=== PATIENT | female | born 1975 | race Caucasian/White ===

== ENCOUNTER 2016-08-18 08:00 | Outpatient (CLI) | payer OTHER | END 2016-08-18 08:01 | disposition home or self-care (01) | DX: E11.9 Type 2 diabetes mellitus without complications (principal) ==

== ENCOUNTER 2016-11-09 11:00 | Emergency (ER) | payer OTHER | END 2016-11-09 12:44 | disposition home or self-care (01) | DX: R00.2 Palpitations (principal); R06.02 Shortness of breath; I10 Essential (primary) hypertension; E11.9 Type 2 diabetes mellitus without complications; Z79.84 Long term (current) use of oral hypoglycemic drugs; E78.5 Hyperlipidemia, unspecified; Z79.82 Long term (current) use of aspirin ==

== ENCOUNTER 2016-11-12 08:13 | Outpatient (CLI) | payer OTHER | END 2016-11-12 08:14 | disposition home or self-care (01) | DX: E11.9 Type 2 diabetes mellitus without complications (principal); R00.2 Palpitations ==

== ENCOUNTER 2017-03-15 11:21 | Outpatient (CLI) | payer OTHER ==
[2017-03-15 19:42] LABS: ALBUMIN/GLOBULIN RATIO 1.6 (1.0-2.2); BILIRUBIN,TOTAL 0.6 mg/dL (0.2-1.0); BUN - BLOOD UREA NITROGEN 20 mg/dL (6-20); CARBON DIOXIDE - CO2 25 mmol/L (21-32); CHLORIDE 105 mmol/L (101-111); CHOL/HDL RATIO 4.9 (<4.4); CHOLESTEROL 211 mg/dL; CREATININE 0.8 mg/dL (0.4-1.0); GFR - MDRD 79 (>89); GLUCOSE 90 mg/dL (70-100); HDL CHOLESTEROL 43 mg/dL; LDL/HDL RATIO 3.5 (<4.4); POTASSIUM 4.1 mmol/L (3.5-5.0); SODIUM 137 mmol/L (135-145); TOTAL PROTEIN 6.9 g/dL (6.7-8.2); TRIGLYCERIDES 86 mg/dL; VLDL CHOLESTEROL 17 mg/dL
[2017-03-15 20:36] LABS: HEMOGLOBIN A1C 0.42 g/dL
== END 2017-03-15 11:22 ==
LOC: LAB.WCP 11:21
PROVIDERS: ATTEND Physician Assistant Medical
DX: E11.9 Type 2 diabetes mellitus without complications (principal)
CPT/HCPCS: 36415; 80053; 80061; 83036

== ENCOUNTER 2017-03-25 09:57 | Outpatient (CLI) | payer OTHER ==
--- NOTE | 2017-03-26 15:24 | Mammography Report ---
DIGITAL SCREENING MAMMOGRAM: 03/25/2017 CLINICAL INDICATION: A 41-year-old, for screening. COMPARISON: 01/2016. TECHNIQUE: Routine CC and MLO projections were obtained of the breasts. FINDINGS: Scattered fibroglandular tissue is present within the breasts. There are no dominant anshul s, suspicious microcalcifications, or secondary signs of malignancy. In comparison to the previous st udies, there are no significant changes. ASSESSMENT: NO MAMMOGRAPHIC EVIDENCE OF MALIGNANCY. NO SIGNIFICANT INTERVAL CHANGES. RECOMMENDATION: Screening mammography is recommended annually. BIRADS category 1 - negative. STANDARD QUALIFYING STATEMENTS 1. This examination was reviewed with the aid of Computed-Aided Detection (CAD). 2. A negative or benign imaging report should not delay biopsy if clinically suspicious findings are present. Consider surgical consultation if warranted. More than 5% of cancers are not identified by i maging. 3. Dense breasts may obscure an underlying neoplasm. JOB #: [id number] EXT JOB #:[id number]
== END 2017-03-25 09:58 | disposition home or self-care (01) ==
LOC: DI 09:57
PROVIDERS: ATTEND Physician Assistant Medical
DX: Z12.31 Encounter for screening mammogram for malignant neoplasm of breast (principal)
CPT/HCPCS: 77067

== ENCOUNTER 2017-06-24 08:00 | Outpatient (CLI) | payer OTHER ==
[2017-06-24 13:37] LABS: ALBUMIN/GLOBULIN RATIO 1.4 (1.0-2.2); BILIRUBIN,TOTAL 0.3 mg/dL (0.2-1.0); BUN - BLOOD UREA NITROGEN 14 mg/dL (6-20); CALCIUM 9.3 mg/dL (8.5-10.3); CARBON DIOXIDE - CO2 26 mmol/L (21-32); CHLORIDE 102 mmol/L (101-111); CHOL/HDL RATIO 3.2 (<4.4); CHOLESTEROL 157 mg/dL; CREATININE 0.8 mg/dL (0.4-1.0); GFR - MDRD 79 (>89); GLUCOSE 94 mg/dL (70-100); HDL CHOLESTEROL 49 mg/dL; LDL/HDL RATIO 1.8 (<4.4); POTASSIUM 3.8 mmol/L (3.5-5.0); SODIUM 135 mmol/L (135-145); TOTAL PROTEIN 7.2 g/dL (6.7-8.2); TRIGLYCERIDES 95 mg/dL; VLDL CHOLESTEROL 19 mg/dL
[2017-06-24 13:42] LABS: HEMOGLOBIN A1C 0.47 g/dL
== END 2017-06-24 08:01 | disposition home or self-care (01) ==
LOC: LAB.WCP 08:00
PROVIDERS: ATTEND Physician Assistant Medical
DX: E11.9 Type 2 diabetes mellitus without complications (principal)
CPT/HCPCS: 36415; 80053; 80061; 82043; 83036

== ENCOUNTER 2017-09-29 08:01 | Outpatient (CLI) | payer OTHER ==
[2017-09-29 13:33] LABS: HB2 TOTAL 12.9 g/dL; HEMOGLOBIN A1C 0.42 g/dL; HEMOGLOBIN A1C % 5.1 % (4.6-6.2)
[2017-09-29 13:35] LABS: ALBUMIN 4.1 g/dL (3.2-5.5); ALBUMIN/GLOBULIN RATIO 1.2 (1.0-2.2); ALKALINE PHOSPHATASE 60 IU/L (42-121); ALT ALANINE AMINOTRANSFERASE 20 IU/L (10-60); AST ASPARTATE AMINOTRANSFERASE 19 IU/L (10-42); BILIRUBIN,TOTAL 0.2 mg/dL (0.2-1.0); BUN - BLOOD UREA NITROGEN 19 mg/dL (6-20); CALCIUM 8.9 mg/dL (8.5-10.3); CARBON DIOXIDE - CO2 26 mmol/L (21-32); CHLORIDE 103 mmol/L (101-111); CHOL/HDL RATIO 3.4 (<4.4); CHOLESTEROL 146 mg/dL; CREATININE 0.8 mg/dL (0.4-1.0); GFR - MDRD 79 (>89); GLUCOSE 95 mg/dL (70-100); HDL CHOLESTEROL 43 mg/dL; LDL CHOLESTEROL,CALCULATED 88 mg/dL; SODIUM 137 mmol/L (135-145); TOTAL PROTEIN 7.4 g/dL (6.7-8.2); VLDL CHOLESTEROL 15 mg/dL
== END 2017-09-29 08:02 | disposition home or self-care (01) ==
LOC: LAB.WCP 08:01
PROVIDERS: ATTEND Physician Assistant Medical
DX: E11.9 Type 2 diabetes mellitus without complications (principal); E78.5 Hyperlipidemia, unspecified
CPT/HCPCS: 36415; 80053; 80061; 83036; 83721

== ENCOUNTER 2018-05-03 09:44 | Outpatient (CLI) | payer OTHER ==
[2018-05-03 13:58] LABS: BASOPHILS % (AUTO) 0.4 %; EOSINOPHILS # (AUTO) 0.2 10^3/uL (0.0-0.7); EOSINOPHILS % (AUTO) 2.1 %; HGB - HEMOGLOBIN 12.2 g/dL (12.0-16.0); LYMPHOCYTES # (AUTO) 2.3 10^3/uL (1.5-3.5); LYMPHOCYTES % (AUTO) 30.1 %; MEAN CORPUSCULAR HEMOGLOBIN 31.1 pg (27.0-31.0); MEAN CORPUSCULAR HGB CONC 34.8 g/dL (32.0-36.0); MEAN CORPUSCULAR VOLUME 89.1 fL (81.0-99.0); MEAN PLATELET VOLUME 8.3 fL (7.9-10.8); MONOCYTES # (AUTO) 0.5 10^3/uL (0.0-1.0); MONOCYTES % (AUTO) 6.2 %; NEUTROPHILS # (AUTO) 4.7 10^3/uL (1.5-6.6); NEUTROPHILS % (AUTO) 61.2 %; PLT - PLATELET COUNT 364 10^3/uL (130-450); RED BLOOD COUNT 3.93 10^6/uL (4.20-5.40); RED CELL DISTRIBUTION WIDTH 13.2 % (12.0-15.0); WHITE BLOOD COUNT 7.6 x10^3/uL (4.8-10.8)
[2018-05-03 14:23] LABS: HEMOGLOBIN A1C 0.43 g/dL; HEMOGLOBIN A1C % 5.2 % (4.6-6.2)
[2018-05-03 14:39] LABS: ALBUMIN 4.3 g/dL (3.2-5.5); ALBUMIN/GLOBULIN RATIO 1.4 (1.0-2.2); ALKALINE PHOSPHATASE 72 IU/L (42-121); ALT ALANINE AMINOTRANSFERASE 21 IU/L (10-60); AST ASPARTATE AMINOTRANSFERASE 20 IU/L (10-42); BILIRUBIN,TOTAL 0.5 mg/dL (0.2-1.0); BUN - BLOOD UREA NITROGEN 17 mg/dL (6-20); CALCIUM 9.4 mg/dL (8.5-10.3); CARBON DIOXIDE - CO2 26 mmol/L (21-32); CHLORIDE 103 mmol/L (101-111); CHOL/HDL RATIO 3.3 (<4.4); CHOLESTEROL 174 mg/dL; CREATININE 0.7 mg/dL (0.4-1.0); GFR - MDRD 92 (>89); GLUCOSE 107 mg/dL (70-100); HDL CHOLESTEROL 52 mg/dL; LDL CHOLESTEROL,CALCULATED 107 mg/dL; LDL/HDL RATIO 2.1 (<4.4); SODIUM 136 mmol/L (135-145); TOTAL PROTEIN 7.4 g/dL (6.7-8.2); VLDL CHOLESTEROL 15 mg/dL
== END 2018-05-03 09:45 | disposition home or self-care (01) ==
LOC: LAB.WCP 09:44
PROVIDERS: ATTEND Physician Assistant Medical
DX: E11.9 Type 2 diabetes mellitus without complications (principal); Z00.00 Encounter for general adult medical examination without abnormal findings
CPT/HCPCS: 36415; 80053; 80061; 80175; 82043; 83036; 83721; 84443; 85025

== ENCOUNTER 2018-10-20 08:00 | Outpatient (CLI) | payer OTHER ==
[2018-10-20 19:15] LABS: HB2 TOTAL 13.7 g/dL; HEMOGLOBIN A1C 0.45 g/dL; HEMOGLOBIN A1C % 5.2 % (4.6-6.2)
[2018-10-20 19:19] LABS: ALBUMIN 4.5 g/dL (3.2-5.5); ALBUMIN/GLOBULIN RATIO 1.7 (1.0-2.2); ALKALINE PHOSPHATASE 65 IU/L (42-121); ALT ALANINE AMINOTRANSFERASE 21 IU/L (10-60); AST ASPARTATE AMINOTRANSFERASE 22 IU/L (10-42); BILIRUBIN,TOTAL 0.6 mg/dL (0.2-1.0); BUN - BLOOD UREA NITROGEN 19 mg/dL (6-20); CALCIUM 9.3 mg/dL (8.5-10.3); CARBON DIOXIDE - CO2 27 mmol/L (21-32); CHLORIDE 101 mmol/L (101-111); CHOL/HDL RATIO 2.6 (<4.4); CHOLESTEROL 140 mg/dL; CREATININE 0.8 mg/dL (0.4-1.0); GFR - MDRD 78 (>89); GLUCOSE 82 mg/dL (70-100); HDL CHOLESTEROL 53 mg/dL; LDL CHOLESTEROL,CALCULATED 76 mg/dL; LDL/HDL RATIO 1.4 (<4.4); SODIUM 138 mmol/L (135-145); TOTAL PROTEIN 7.2 g/dL (6.7-8.2); VLDL CHOLESTEROL 11 mg/dL
== END 2018-10-20 23:59 | disposition home or self-care (01) ==
LOC: LAB.WCP 08:00
PROVIDERS: ATTEND Physician Assistant Medical
DX: E11.9 Type 2 diabetes mellitus without complications (principal)
CPT/HCPCS: 36415; 80053; 80061; 83036; 83721

== ENCOUNTER 2018-10-27 12:12 | Outpatient (CLI) | payer OTHER ==
--- NOTE | 2018-10-27 16:05 | XRAY Report ---
Reason: RADICULOPATHY Procedure Date: 10/27/2018 Accession Number: [id number] / [id number] Procedure: WCP - Cervical Spine 2 View CPT Code: FULL RESULT: EXAM: CERVICAL SPINE RADIOGRAPHY EXAM DATE: 10/27/2018 12:20 PM. CLINICAL HISTORY: RADICULOPATHY. COMPARISONS: None. TECHNIQUE: 3 views. FINDINGS: Alignment: Normal. No spondylolisthesis or scoliosis. Bones: The cervical vertebral bodies and posterior elements are well visualized from the skull base through C7-T1. No fractures or bone lesions. Disks: Normal. Disk heights are maintained. Facets: No degenerative disease. Soft Tissues: Normal. No prevertebral soft tissue swelling. The visualized lung apices are clear. IMPRESSION: Normal cervical spine radiography. RADIA
--- NOTE | 2018-10-27 16:05 | XRAY Report ---
Reason: LOW BACK PAIN Procedure Date: 10/27/2018 Accession Number: [id number] / [id number] Procedure: WCP - Lumbar Spine 2 View CPT Code: FULL RESULT: EXAM: LUMBOSACRAL SPINE RADIOGRAPHY EXAM DATE: 10/27/2018 12:20 PM. CLINICAL HISTORY: Low back pain. COMPARISONS: None. TECHNIQUE: 2 views. FINDINGS: Alignment: Normal. No spondylolisthesis or scoliosis. Bones: Five tqq-rbz-uholgyw lumbar vertebral bodies are present. No fractures or bone lesions. Disks: Normal. Disk heights are maintained. Facets: No degenerative changes. Sacroiliac Joints: Unremarkable. Soft Tissues: Normal. The visualized bowel gas pattern is normal. Moderate to large stool burden. IMPRESSION: Normal lumbar spine radiography. RADIA
== END 2018-10-27 12:15 ==
LOC: DI.WCP 12:12
PROVIDERS: ATTEND Physician Assistant Medical
DX: M54.12 Radiculopathy, cervical region (principal); M54.16 Radiculopathy, lumbar region
CPT/HCPCS: 72040; 72100

== ENCOUNTER 2019-11-08 07:00 | Outpatient (CLI) | payer OTHER ==
[2019-11-08 18:02] LABS: CALCIUM 9.2 mg/dL (8.5-10.3); CREATININE 0.8 mg/dL (0.4-1.0)
[2019-11-08 18:07] LABS: HB2 TOTAL 12.8 g/dL; HEMOGLOBIN A1C 0.45 g/dL; HEMOGLOBIN A1C % 5.4 % (4.6-6.2)
== END 2019-11-08 23:59 | disposition home or self-care (01) ==
LOC: LAB.WCP 07:00
PROVIDERS: ATTEND Physician Assistant Medical
DX: E11.9 Type 2 diabetes mellitus without complications (principal); F31.9 Bipolar disorder, unspecified
CPT/HCPCS: 36415; 80048; 80175; 83036

== ENCOUNTER 2020-10-24 08:00 | Outpatient (CLI) | payer OTHER ==
[2020-10-24 13:55] LABS: BASOPHILS # (AUTO) 0.1 10^3/uL (0.0-0.1); BASOPHILS % (AUTO) 0.7 %; EOSINOPHILS # (AUTO) 0.2 10^3/uL (0.0-0.7); EOSINOPHILS % (AUTO) 1.8 %; HCT - HEMATOCRIT 37.6 % (37.0-47.0); HGB - HEMOGLOBIN 11.8 g/dL (12.0-16.0); LYMPHOCYTES # (AUTO) 2.4 10^3/uL (1.5-3.5); LYMPHOCYTES % (AUTO) 22.9 %; MEAN CORPUSCULAR HEMOGLOBIN 29.3 pg (27.0-31.0); MEAN CORPUSCULAR HGB CONC 31.4 g/dL (32.0-36.0); MEAN CORPUSCULAR VOLUME 93.3 fL (81.0-99.0); MEAN PLATELET VOLUME 10.1 fL (7.9-10.8); MONOCYTES # (AUTO) 0.8 10^3/uL (0.0-1.0); MONOCYTES % (AUTO) 7.7 %; NEUTROPHILS # (AUTO) 6.9 10^3/uL (1.5-6.6); NEUTROPHILS % (AUTO) 66.4 %; PLT - PLATELET COUNT 472 10^3/uL (130-450); RED BLOOD COUNT 4.03 10^6/uL (4.20-5.40); RED CELL DISTRIBUTION WIDTH 13.1 % (12.0-15.0); WHITE BLOOD COUNT 10.4 x10^3/uL (4.8-10.8)
[2020-10-24 14:14] LABS: ALBUMIN 3.9 g/dL (3.2-5.5); ALBUMIN/GLOBULIN RATIO 1.2 (1.0-2.2); ALKALINE PHOSPHATASE 75 IU/L (42-121); ALT ALANINE AMINOTRANSFERASE 22 IU/L (10-60); AST ASPARTATE AMINOTRANSFERASE 19 IU/L (10-42); BILIRUBIN,TOTAL 0.4 mg/dL (0.2-1.0); BUN - BLOOD UREA NITROGEN 17 mg/dL (6-20); CALCIUM 9.5 mg/dL (8.5-10.3); CARBON DIOXIDE - CO2 26 mmol/L (21-32); CHLORIDE 101 mmol/L (101-111); CHOL/HDL RATIO 3.7 (<4.4); CHOLESTEROL 189 mg/dL; CREATININE 0.8 mg/dL (0.4-1.0); GFR - MDRD 78 (>89); GLUCOSE 113 mg/dL (70-100); HDL CHOLESTEROL 51 mg/dL; LDL CHOLESTEROL,CALCULATED 103 mg/dL; POTASSIUM 4.2 mmol/L (3.5-5.0); SODIUM 137 mmol/L (135-145); TOTAL PROTEIN 7.1 g/dL (6.7-8.2); TRIGLYCERIDES 176 mg/dL; VLDL CHOLESTEROL 35 mg/dL
[2020-10-24 14:19] LABS: THYROID STIMULATING HORMONE 1.67 uIU/mL (0.34-5.60)
[2020-10-24 14:24] LABS: ESTIMATED AVERAGE GLUCOSE 120 mg/dL (70-100); HEMOGLOBIN A1c% 5.8 % (4.27-6.07)
== END 2020-10-24 23:59 | disposition home or self-care (01) ==
LOC: LAB.WCP 08:00
PROVIDERS: ATTEND Nurse Practitioner Family
DX: E78.5 Hyperlipidemia, unspecified (principal); E11.9 Type 2 diabetes mellitus without complications; I10 Essential (primary) hypertension
CPT/HCPCS: 36415; 80053; 80061; 83036; 83721; 84443; 85025

== ENCOUNTER 2020-12-24 07:45 | Outpatient (CLI) | payer OTHER ==
--- NOTE | 2020-12-26 08:30 | Mammography Report ---
BILATERAL DIGITAL SCREENING MAMMOGRAM 3D/2D: 12/24/2020 CLINICAL: Routine screening. Comparison is made to exams dated: 03/25/2017 mammogram and 02/10/2016 mammogram - [facility]. The tissue of both breasts is heterogeneously dense. This may lower the sensitivity of ma mmography. There is a new high density focal asymmetry in the right axillary tail. No other significant masses, calcifications, or other findings are seen in either breast. IMPRESSION: INCOMPLETE: NEEDS ADDITIONAL IMAGING EVALUATION The new high density focal asymmetry is indeterminate. Additional views with possible ultrasound are recommended. This exam was interpreted at Station ID: [id number]. NOTE: For mammograms, a report in lay terms will be sent to the patient. Approximately 15% of breast malignancies will not be visualized mammographically. In the management of a palpable breast mass, a negative mammogram must not discourage biopsy of a clinically suspicious lesion. Electronically Signed By: Santo Juarez M.D. ar/penrad:12/24/2020 08:49:10 ACR BI-RADS Category 0: Incomplete 3340F PARENCHYMAL PATTERN: (D) - The breast(s) demonstrate(s) heterogeneously dense fibroglandular parenchy ma. BI-RADS CATEGORY: (0) - 0 Mammo and [place] [id number] Immediate follow-up LATERALITY: (R)
== END 2020-12-24 07:46 | disposition home or self-care (01) ==
LOC: DI 07:45
DX: Z12.31 Encounter for screening mammogram for malignant neoplasm of breast (principal); R92.8 Other abnormal and inconclusive findings on diagnostic imaging of breast

== ENCOUNTER 2021-01-23 07:56 | Outpatient (CLI) | payer OTHER ==
--- NOTE | 2021-01-24 08:56 | Ultrasound Report ---
LIMITED ULTRASOUND OF RIGHT BREAST: 01/23/2021 CLINICAL: Patient returns today to evaluate a focal asymmetry in the right breast. Comparison is made to exams dated: 01/23/2021 mammogram, 12/24/2020 mammogram, 03/25/2017 mammogram, an d 02/10/2016 mammogram - . Color flow ultrasound of the right breast 10-11 o'clock region was performed. Ricks scale images of t he real-time examination were reviewed. There is no discrete abnormality demonstrated in the right axillary tail on ultrasound. IMPRESSION: SUSPICIOUS OF MALIGNANCY No sonographic abnormality demonstrated; no correlate or the mammographic abnormality which remains s uspicious. Stereotactic biopsy is recommended. This exam was interpreted at Station ID: [id number]. Electronically Signed By: Monty Borden M.D. jr/:01/23/2021 10:15:18 Ultrasound BI-RADS: 4 Suspicious for malignancy BI-RADS CATEGORY: (4) - 4 None [id number] Immediate follow-up LATERALITY: ()
--- NOTE | 2021-01-24 08:56 | Mammography Report ---
UNILATERAL RIGHT DIGITAL DIAGNOSTIC MAMMOGRAM 3D/2D: 01/23/2021 CLINICAL: Patient returns today to evaluate a focal asymmetry in the right breast. Comparison is made to exams dated: 12/24/2020 mammogram, 03/25/2017 mammogram, and 02/10/2016 mammogram - [facility]. The tissue of right breast is heterogeneously dense. This may lower the sensitivity of mammography. The previously described developing irregular high density focal asymmetry in the right axillary tail does not dissipate with spot compression. No other significant masses or calcifications are seen in the breast. IMPRESSION: INCOMPLETE: NEEDS ADDITIONAL IMAGING EVALUATION The developing new irregular high density focal asymmetry is indeterminate. An ultrasound is recomme nded and is scheduled to immediately follow. This exam was interpreted at Station ID: [id number]. NOTE: For mammograms, a report in lay terms will be sent to the patient. Approximately 15% of breast malignancies will not be visualized mammographically. In the management of a palpable breast mass, a negative mammogram must not discourage biopsy of a clinically suspicious lesion. Electronically Signed By: Monty Borden M.D. jr/:01/23/2021 09:22:20 ACR BI-RADS Category 0: Incomplete 3340F PARENCHYMAL PATTERN: (D) - The breast(s) demonstrate(s) heterogeneously dense fibroglandular parphyllis galvez. BI-RADS CATEGORY: (0) - 0 Ultrasound [id number] Immediate follow-up LATERALITY: (B)
== END 2021-01-23 07:57 | disposition home or self-care (01) ==
LOC: DI 07:56
PROVIDERS: ATTEND Physician Assistant Medical
DX: R92.8 Other abnormal and inconclusive findings on diagnostic imaging of breast (principal)

== ENCOUNTER 2021-01-29 09:14 | Outpatient (CLI) | payer OTHER ==
[~2021-01-29 09:14] MED LIST: BUFFERED LIDOCAINE 10 ML SYRINGE ONE; BUPIVACAINE 0.5% PF 10 ML VIAL ONE; LIDOCAINE MPF 1%-EPI 1:200000 30 ML VIAL ONE
--- NOTE | 2021-02-03 09:47 | Mammography Report ---
DIGITAL TOMOGRAPHIC MAMMOGRAPHY GUIDED STEREOTACTIC GUIDED BIOPSY RIGHT BREAST WITH MARKING DEVICE IN SERTED AND POST MAMMOGRAPHIC IMAGIN01/29/2021 CLINICAL: Right breast mass. Right breast stereotactic biopsy. Correlation is made to exams dated: 01/23/2021 ultrasound, 01/23/2021 mammogram, 12/24/2020 mammogram, 03/25/2017 mammogram, and 02/10/2016 mammogram - [facility]. A stereotactic guided biopsy was performed for the irregular shaped asymmetry located in the right ax illary tail. This was described on the previous mammography and ultrasound reports. The skin was pr epped in the usual manner. Local anesthetic was administered to the access site. A skin anna was ma de in the breast. The abnormality was approached from the craniocaudal aspect using an upright digit al tomographic mammography unit. A 9 gauge biopsy needle was placed adjacent to the abnormality unde r computer guidance and confirmatory stereotactic mammography images were obtained to document needle placement. Once the needle was documented to be in the correct location, seven specimens were obtai rere using Siemens upright tomosynthesis biopsy unit. A clip was inserted into the biopsy cavity. A sterile dressing was applied to the access site. Post procedure mammographic imaging demonstrates th e location device at the targeted area. The specimens were sent to the laboratory for pathological a nalysis. IMPRESSION: STEREOTACTIC GUIDED BIOPSY BENIGN Stereotactic guided biopsy of the asymmetry in the right axillary tail was successful. 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 Pathology results are concordant with courtney ging findings. Return to screening mammography is recommended. This exam was interpreted at Station ID: [id number]. alcides Leal M.D., M.D./:02/03/2021 08:09:41 BI-RADS CATEGORY: () - Unspecified - other recall n/a LATERALITY: (B)
== END 2021-01-29 09:15 | disposition home or self-care (01) ==
LOC: DI 09:14
PROVIDERS: ATTEND Physician Assistant Medical
DX: R92.8 Other abnormal and inconclusive findings on diagnostic imaging of breast (principal)
CPT/HCPCS: 19081

== ENCOUNTER 2021-03-18 12:15 | Outpatient (CLI) | payer OTHER ==
--- NOTE | 2021-03-18 17:45 | XRAY Report ---
PROCEDURE: Foot 3 View RT INDICATIONS: R FOOT PX TECHNIQUE: 3 views of the foot were acquired. COMPARISON: None. FINDINGS: Bones: No fractures or dislocations. No suspicious bony lesions. Incidental note is made of a bipa rtite medial sesamoid bone. An accessory ossicle is seen, an os trigonum. Soft tissues: No tibiotalar joint effusion. Achilles tendon appears normal. IMPRESSION: No significant plain film abnormality can be seen. Reviewed by: Juan David Manrique MD on 03/18/2021 4:44 PM AKDT Approved by: Juan David Manrique MD on 03/18/2021 4:44 PM AKDT Station ID: [id number]
== END 2021-03-18 12:16 | disposition home or self-care (01) ==
LOC: DI.N 12:15
PROVIDERS: ATTEND Family Medicine
DX: M79.671 Pain in right foot (principal)

== ENCOUNTER 2021-04-25 10:36 | Outpatient (CLI) | payer OTHER ==
--- NOTE | 2021-04-25 13:23 | XRAY Report ---
PROCEDURE: Foot 3 View RT INDICATIONS: CONTINUED RIGHT FOOT PAIN S/P INJURY MAR 18, 2021 TECHNIQUE: 3 views of the foot were acquired. COMPARISON: 03/18/2021 FINDINGS: Bones: No fractures or dislocations. No suspicious bony lesions. There is a mild hallux valgus ang ulation of the metatarsophalangeal joint. Soft tissues: No tibiotalar joint effusion. Achilles tendon appears normal. IMPRESSION: 1. No acute abnormality. 2. Mild hallux valgus angulation of the great toe. Reviewed by: Henrry Nieves on 04/25/2021 1:21 PM PDT Approved by: Henrry Nieves on 04/25/2021 1:21 PM PDT Station ID: [id number]
== END 2021-04-25 23:59 | disposition home or self-care (01) ==
LOC: DI.N 10:36
PROVIDERS: ATTEND Physician Assistant Medical
DX: S93.691D Other sprain of right foot, subsequent encounter (principal); M20.11 Hallux valgus (acquired), right foot

== ENCOUNTER 2022-01-07 12:10 | Outpatient (CLI) | payer OTHER | END 2022-01-07 12:11 | disposition home or self-care (01) | LOC: LAB.N 12:10 | PROVIDERS: ATTEND Physician Assistant Medical | DX: F60.5 Obsessive-compulsive personality disorder (principal) | CPT/HCPCS: 36415; 80175 ==

== ENCOUNTER 2022-02-12 10:43 | Outpatient (CLI) | payer OTHER ==
[2022-02-12 11:56] LABS: BASOPHILS # (AUTO) 0.1 10^3/uL (0.0-0.1); BASOPHILS % (AUTO) 0.7 %; EOSINOPHILS # (AUTO) 0.2 10^3/uL (0.0-0.7); EOSINOPHILS % (AUTO) 2.1 %; HCT - HEMATOCRIT 36.9 % (37.0-47.0); HGB - HEMOGLOBIN 11.8 g/dL (12.0-16.0); LYMPHOCYTES # (AUTO) 2.2 10^3/uL (1.5-3.5); LYMPHOCYTES % (AUTO) 25.8 %; MEAN CORPUSCULAR HEMOGLOBIN 29.6 pg (27.0-31.0); MEAN CORPUSCULAR VOLUME 92.7 fL (81.0-99.0); MEAN PLATELET VOLUME 9.8 fL (7.9-10.8); MONOCYTES # (AUTO) 0.7 10^3/uL (0.0-1.0); MONOCYTES % (AUTO) 8.1 %; NEUTROPHILS # (AUTO) 5.3 10^3/uL (1.5-6.6); NEUTROPHILS % (AUTO) 62.8 %; PLT - PLATELET COUNT 467 10^3/uL (130-450); RED BLOOD COUNT 3.98 10^6/uL (4.20-5.40); WHITE BLOOD COUNT 8.4 x10^3/uL (4.8-10.8)
[2022-02-12 12:29] LABS: ALBUMIN 4.3 g/dL (3.2-5.5); ALBUMIN/GLOBULIN RATIO 1.4 (1.0-2.2); ALKALINE PHOSPHATASE 72 IU/L (42-121); ALT ALANINE AMINOTRANSFERASE 22 IU/L (10-60); AST ASPARTATE AMINOTRANSFERASE 18 IU/L (10-42); BILIRUBIN,TOTAL 0.5 mg/dL (0.2-1.0); BUN - BLOOD UREA NITROGEN 16 mg/dL (6-20); CALCIUM 9.3 mg/dL (8.5-10.3); CARBON DIOXIDE - CO2 28 mmol/L (21-32); CHLORIDE 104 mmol/L (101-111); CHOL/HDL RATIO 3.5 (<4.4); CHOLESTEROL 168 mg/dL; CREATININE 0.9 mg/dL (0.4-1.0); ESTIMATED AVERAGE GLUCOSE 128 mg/dL (70-100); GFR - MDRD 67 (>89); GLUCOSE 110 mg/dL (70-100); HDL CHOLESTEROL 48 mg/dL; HEMOGLOBIN A1c% 6.1 % (4.27-6.07); LDL CHOLESTEROL,CALCULATED 96 mg/dL; POTASSIUM 4.2 mmol/L (3.5-5.0); SODIUM 140 mmol/L (135-145); TOTAL PROTEIN 7.4 g/dL (6.7-8.2); TRIGLYCERIDES 119 mg/dL; VLDL CHOLESTEROL 24 mg/dL
[2022-02-12 12:34] LABS: MICROALBUM/CREATININE RATIO,UR 5.1 ug/mg (<30.0); MICROALBUMIN,URINE 1.4 mg/dL (0-300.0)
[2022-02-12 12:39] LABS: THYROID STIMULATING HORMONE 1.06 uIU/mL (0.34-5.60)
== END 2022-02-12 10:44 | disposition home or self-care (01) ==
LOC: LAB.N 10:43
PROVIDERS: ATTEND Physician Assistant Medical
DX: Z00.00 Encounter for general adult medical examination without abnormal findings (principal); E11.9 Type 2 diabetes mellitus without complications; E78.5 Hyperlipidemia, unspecified
CPT/HCPCS: 36415; 80053; 80061; 82043; 82570; 83036; 83721; 84443; 85025

== ENCOUNTER 2022-05-14 08:01 | Outpatient (CLI) | payer OTHER ==
--- NOTE | 2022-05-14 14:44 | Ultrasound Report ---
PROCEDURE: Abdomen Limited INDICATIONS: GALLSTONES TECHNIQUE: Real-time scanning was performed of the abdominal and retroperitoneal organs, with image documentatio n. COMPARISON: None. FINDINGS: Liver: Liver is enlarged measuring 18.0 cm with increased echogenicity of hepatic parenchyma. Gallbladder: Multiple foci of increased echogenicity are identified. Wall thickness is normal measuri ng 1.5 mm. Biliary ducts: Intrahepatic bile ducts are non-dilated. Extrahepatic bile duct caliber measures 5.1 mm. Normal is 6-7 mm or less in diameter, or 10 mm or less post-cholecystectomy. Pancreas: Visualized portions of the pancreas are sonographically normal. Kidneys: Right kidney measures 10.8 cm long. No hydronephrosis or nephrolithiasis. No solid masses . IMPRESSION: Cholelithiasis without imaging evidence of cholecystitis. Reviewed by: Malou Sevilla MD on 05/14/2022 2:43 PM PDT Approved by: Malou Sevilla MD on 05/14/2022 2:43 PM PDT Station ID: [id number]
== END 2022-05-14 08:02 | disposition home or self-care (01) ==
LOC: DI 08:01
PROVIDERS: ATTEND Physician Assistant Medical
DX: K80.20 Calculus of gallbladder without cholecystitis without obstruction (principal)

== ENCOUNTER 2022-06-03 20:58 | Emergency (ER) | payer OTHER ==
[2022-06-03 21:29] VITALS: BP 178/110
[2022-06-03 21:40] LABS: BASOPHILS % (AUTO) 0.3 %; EOSINOPHILS # (AUTO) 0.1 10^3/uL (0.0-0.7); EOSINOPHILS % (AUTO) 1.6 %; HCT - HEMATOCRIT 36.9 % (37.0-47.0); HGB - HEMOGLOBIN 11.8 g/dL (12.0-16.0); LYMPHOCYTES % (AUTO) 22.5 %; MEAN CORPUSCULAR HEMOGLOBIN 29.1 pg (27.0-31.0); MEAN CORPUSCULAR VOLUME 91.1 fL (81.0-99.0); MEAN PLATELET VOLUME 9.2 fL (7.9-10.8); MONOCYTES # (AUTO) 0.8 10^3/uL (0.0-1.0); MONOCYTES % (AUTO) 8.5 %; NEUTROPHILS # (AUTO) 5.9 10^3/uL (1.5-6.6); NEUTROPHILS % (AUTO) 66.8 %; PLT - PLATELET COUNT 419 10^3/uL (130-450); RED BLOOD COUNT 4.05 10^6/uL (4.20-5.40); RED CELL DISTRIBUTION WIDTH 13.5 % (12.0-15.0); WHITE BLOOD COUNT 8.9 x10^3/uL (4.8-10.8)
[2022-06-03 21:54] LABS: ALBUMIN 4.5 g/dL (3.2-5.5); ALBUMIN/GLOBULIN RATIO 1.5 (1.0-2.2); BILIRUBIN,TOTAL 0.4 mg/dL (0.2-1.0); CREATININE 0.9 mg/dL (0.4-1.0); POTASSIUM 3.7 mmol/L (3.5-5.0); TOTAL PROTEIN 7.6 g/dL (6.7-8.2)
--- NOTE | 2022-06-03 22:45 | ED Physician Documentation ---
PD HPI ABD PAIN - Stated complaint Stated Complaint: VOMITTING,ABD PX,DIARRHEA - Chief complaint Chief Complaint: Abd Pain - History obtained from History obtained from: Patient - History of Present Illness Timing - onset: Today Timing - details: Abrupt onset, Waxing and waning Pain level now: 6 Quality: Pain Location: RUQ Radiation: Left shoulder, Right shoulder, Upper back Improved by: Other (no ameliorating factors) Worsened by: Palpation Associated symptoms: Nausea, Vomiting. No: Fever, Diarrhea, Constipation Similar symptoms before: Diagnosis (biliary colic) - Additional information Additional information: c/o severe RUQ abdominal pain x several hours with radiation to upper back, both shoulders, and nausea/vomiting. She says she has had similar symptoms before which are attributed to gallstones, but tonight's symptoms were more severe than previous. She is scheduled for cholecystectomy in July with Dr. Almodovar. She says she does not have any prescription pain medications nor antinauseants at home. Review of Systems Constitutional: reports: Reviewed and negative Cardiac: reports: Reviewed and negative Respiratory: reports: Reviewed and negative GI: reports: Abdominal Pain, Nausea, Vomiting. denies: Abdominal Swelling, Constipation, Diarrhea, Hematemesis, Bloody / black stool : denies: Dysuria, Frequency, Now EGA PD PAST MEDICAL HISTORY - Past Medical History Past Medical History: Yes Cardiovascular: Hypertension, High cholesterol Respiratory: None Neuro: None Endocrine/Autoimmune: Type 2 diabetes GI: None TILE LAYER HELPER: None : None HEENT: None Psych: Depression, Anxiety, Obsessive compulsive disorder Musculoskeletal: None Derm: None - Past Surgical History Past Surgical History: No - Present Medications Home Medications: Ambulatory Orders Medication Instructions Recorded Confirmed lamoTRIgine [Lamictal] 200 mg PO DAILY 05/28/15 11/09/16 Lisinopril/Hydrochlorothiazide 5 mg PO DAILY 03/13/16 11/09/16 [Lisinopril-Hctz 20-25 mg Tab] Metformin HCl 500 mg PO DAILY 03/13/16 11/09/16 Aspirin [Aspir-Low] 81 mg DAILY 11/09/16 11/09/16 Cholecalciferol (Vitamin D3) 1 tab DAILY 11/09/16 11/09/16 [Vitamin D3] Citalopram [CeleXA] 30 mg DAILY 11/09/16 11/09/16 Multivitamin [Multivitamins] 1 tab DAILY 11/09/16 11/09/16 diphenhydrAMINE [Benadryl] 50 mg QPM 11/09/16 11/09/16 Omeprazole 40 mg PO DAILY #14 cap 06/04/22 Ondansetron Odt [Zofran Odt] 4 mg TL Q6H PRN #20 tablet 06/04/22 oxyCODONE [Roxicodone] 5 - 10 mg PO Q6H PRN #20 tablet 06/04/22 - Allergies Allergies/Adverse Reactions: Allergies Allergy/AdvReac Type Severity Reaction Status Date / Time No Known Drug Allergies Allergy Verified 06/03/22 21:29 - Social History Does the pt smoke?: No Smoking Status: Never smoker Does the pt drink ETOH?: No Does the pt have substance abuse?: No - Immunizations Immunizations are current?: Yes - POLST Patient has POLST: No PD ED PE NORMAL - Vitals Vital signs reviewed: Yes - General General: Alert and oriented X 3, Well developed/nourished, Other (appears uncomfortable, mild-moderate painful distress) - HEENT HEENT: Moist mucous membranes - Neck Neck: Supple, no meningeal sign - Cardiac Cardiac: RRR, No murmur - Respiratory Respiratory: No respiratory distress, Clear bilaterally - Abdomen Abdomen: Normal bowel sounds, Soft, Non distended, Other (mild RUQ and epigastric TTP without rebound or guarding) - Back Back: No CVA TTP - Derm Derm: Normal color, Warm and dry, No rash Results - Vitals Vitals: Vital Signs - 24 hr 06/04/22 06/04/22 00:40 01:11 Temperature 37.0 C Respiratory 17 Rate Oxygen O2 Source Room air - Labs Labs: Laboratory Tests 06/03/22 06/03/22 21:36 21:36 WBC 8.9 RBC 4.05 L Hgb 11.8 L Hct 36.9 L MCV 91.1 MCH 29.1 MCHC 32.0 RDW 13.5 Plt Count 419 MPV 9.2 Neut # (Auto) 5.9 Lymph # (Auto) 2.0 [place] # (Auto) 0.8 Eos # (Auto) 0.1 Baso # (Auto) 0.0 Absolute Nucleated RBC 0.00 Nucleated RBC % 0.0 Sodium 139 Potassium 3.7 Chloride 101 Carbon Dioxide 29 Anion Gap 9.0 BUN 13 Creatinine 0.9 Estimated GFR (MDRD) 67 L Glucose 103 H Calcium 11.0 H Total Bilirubin 0.4 AST 22 ALT 28 Alkaline Phosphatase 89 Total Protein 7.6 Albumin 4.5 Globulin 3.1 Albumin/Globulin Ratio 1.5 Lipase 35 - Rads (name of study) RUQ US Radiology: Prelim report reviewed, See rad report PD MEDICAL DECISION MAKING - ED course Complexity details: reviewed old records, reviewed results, re-evaluated patient, considered differential, d/w patient ED course: Ultrasound demonstrates cholelithiasis without evidence of cholecystitis nor biliary ductal dilatation. Unremarkable CBC, ER abdominal panel (including LFTs, lipase). She is mostly in mild discomfort and we discussed options for symptom control including narcotic vs nonnarcotic medications, IV vs PO. The outcome of this discussion was to go with oral medications. She has not needed narcotic pain medication for this pain before. She is given oxycodone 10mg PO and 4mg TL zofran. She is also given protonix PO along with PO maalox and viscous lidocaine, as she was c/o GERD discomfort. She is observed after these medications and on reevaluation, she is resting comfortably in NAD, reports excellent symptom relief. No indication for further ER treatment, testing, nor inpatient treatment. Results were reviewed with patient, prescriptions for oxycodone and zofran provided, return precautions discussed. Departure - Departure Disposition: 01 Home, Self Care Clinical Impression: Biliary colic Condition: Good Instructions: ED Gallstone W Biliary Colic Prescriptions: Omeprazole 40 mg PO DAILY #14 cap oxyCODONE [Roxicodone] 5 - 10 mg PO Q6H PRN #20 tablet PRN Reason: pain Ondansetron Odt [Zofran Odt] 4 mg TL Q6H PRN #20 tablet PRN Reason: Nausea / Vomiting Comments: Your ultrasound again shows gallstones, but there are no other findings (on ultrasound, blood tests) to suggest a more concerning problem such as gallbladder inflammation (cholecystitis) or infection (cholangitis). At this time, it is safe to discharge you home. Follow up with your general surgeon. I am prescribing a short course of narcotic pain medication for you. These are potentially dangerous and addictive medications that should be used carefully. These medications may constipate you. Take an ebvj-blq-ahvefjp stool softener (docusate) twice daily with plenty of water while taking these medications. If you go 24 hours without a bowel movement, take zjuy-htg-kzgbpro miralax, per package instructions. Do not drink or drive while taking these medications. If you received narcotic or sedating medications while in the emergency department, do not drive for 24 hours. Store this medication in a safe, secure place and out of reach of children. It is a violation of federal law to give or sell this medication to another person or to use in a manner other than prescribed. The ED will not refill narcotic prescriptions, including prescriptions lost or stolen. To dispose of unwanted medications: 1. [facility] [address] in [place] has a medication drop box. They accept prescription medications (in pill form) Wednesday through Wednesday 9:00 a.m. to 5:00 p.m. 2. The [facility] [employer] accepts prescription medications (in pill form only) for disposal year round. Call for more information. 3. Contact the [facility] for the next [employer] sponsored prescription drug collection event. , [phone], or [phone]; Discharge Date/Time: 06/04/22 01:12
--- NOTE | 2022-06-03 23:36 | Ultrasound Report ---
PROCEDURE: Abdomen Limited INDICATIONS: known gallstones, worsening symptoms TECHNIQUE: Real-time focused scanning was performed of the abdomen, with image documentation. COMPARISON: 05/14/2022 FINDINGS: Liver is normal in size. Increased liver parenchymal echotexture is seen. No discrete hepatic lesion. Normal hepatopedal flow is seen in main portal vein. Stones are seen in contracted gallbladder lumen with acoustic shadowing. No gross gallbladder wall th ickening or pericholecystic fluid. No sonographic Shah's sign. There is no intrahepatic biliary ductal dilatation. Common bile duct measures up to 3.3 mm in diamete r and is within normal limits. Visualized portion of pancreas shows no gross abnormality. Right kidney measures 10.6 cm in length and 1.2 cm in renal cortical thickness. No hydronephrosis or nephrolithiasis. No gross solid-appearing renal lesion. IMPRESSION: Cholelithiasis without sonographic evidence of acute cholecystitis. No biliary ductal dilatation. Hepatic steatosis. Reviewed by: Raulito Connolly MD on 06/03/2022 11:42 PM PDT Approved by: Raulito Connolly MD on 06/03/2022 11:42 PM PDT Station ID: [id number]
[2022-06-04] MEDS ORDERED: MAG HYDROX/AL HYDROX/SIMETH 30 ML UDC PO STA
[2022-06-04] MEDS ORDERED: ONDANSETRON ODT 4 MG TABLET TL STA
[2022-06-04] MEDS ORDERED: oxyCODONE 5 MG TABLET PO STA
[2022-06-04] MEDS ORDERED: PANTOPRAZOLE 40 MG TABLET PO STA
[2022-06-04] MEDS ORDERED: LIDOCAINE VISCOUS 2% 15 ML UDC MM STA
== END 2022-06-04 01:12 | disposition home or self-care (01) ==
LOC: ED 20:58
DX: K80.50 Calculus of bile duct without cholangitis or cholecystitis without obstruction (principal); I10 Essential (primary) hypertension
CPT/HCPCS: 36415; 76705; 80053; 83690; 85025; 99284; A9270; Q0162; 81001; 81003; 87086

== ENCOUNTER 2022-06-08 10:41 | Outpatient (CLI) | payer OTHER ==
--- NOTE | 2022-06-08 12:09 | Ultrasound Report ---
PROCEDURE: Chest INDICATIONS: SOFT TISSUE MASS TECHNIQUE: Real-time scanning was performed, and a suitable site was marked by the farmworker fruit for thoracentesis to be performed by the referring clinician. COMPARISON: None. FINDINGS: At the area of interest in the upper central chest wall, there is a 3.4 x 1.6 x 2.5 cm slightly hyper echoic circumscribed mass. IMPRESSION: Slightly hyperechoic mass at the area of interest in the chest wall probably represents lipoma. If th is is enlarging or otherwise symptomatic, follow-up imaging and/or tissue sampling could be pursued Reviewed by: Sherman Quiroga MD on 06/08/2022 12:08 PM PDT Approved by: Sherman Quiroga MD on 06/08/2022 12:08 PM PDT Station ID: [id number]
== END 2022-06-08 10:42 | disposition home or self-care (01) ==
LOC: DI 10:41
PROVIDERS: ATTEND Physician Assistant Medical
DX: R22.2 Localized swelling, mass and lump, trunk (principal)

== ENCOUNTER 2022-06-11 10:23 | Day surgery (SDC) | payer OTHER ==
[~2022-06-11 10:23] MED LIST changes: -BUFFERED LIDOCAINE 10 ML SYRINGE ONE; -BUPIVACAINE 0.5% PF 10 ML VIAL ONE; +CEFAZOLIN IV ONE; -LIDOCAINE MPF 1%-EPI 1:200000 30 ML VIAL ONE; +NS IV ONE
[2022-06-11] MEDS ORDERED: PROPOFOL 200 MG/20 ML VIAL IVP ONE (10:26)
[2022-06-11] MEDS ORDERED: ROCURONIUM 50 MG/5 ML VIAL ONE (10:26)
[2022-06-11] MEDS ORDERED: MIDAZOLAM 2 MG/2 ML VIAL ONE (10:27)
[2022-06-11] MEDS ORDERED: fentaNYL 100 MCG/2 ML VIAL ONE ×2 (10:27→13:41)
[2022-06-11] MEDS ORDERED: DEXAMETHASONE 4 MG/ML VIAL ONE (10:28)
[2022-06-11] MEDS ORDERED: ONDANSETRON 4 MG/2 ML VIAL ONE (10:28)
[2022-06-11] MEDS ORDERED: CEFAZOLIN 2G/50ML 0.9% NS 2 GM/50 ML BAG IV ONE (10:30)
[2022-06-11] MEDS ORDERED: BUPIVACAINE 0.25% PF 10 ML VIAL ONE ×2 (10:32→10:33)
[2022-06-11] MEDS ORDERED: LIDOCAINE-MPF 0.5% 50 ML VIAL ONE (10:32)
[2022-06-11] MEDS ORDERED: LACTATED RINGERS 1,000 ML IV ONE ×3 (10:33→13:23)
[2022-06-11 10:46] LABS: HCG UR QUAL NEGATIVE
--- NOTE | 2022-06-11 11:26 | ANESTHESIA ---
Pre-Anesthesia VS, & Labs - Diagnosis cholecystitis - Procedure Cholecystectomy Vital Signs: Temp Pulse Resp BP Pulse Ox O2 Flow Rate 36.8 C 95 16 140/105 H 98 06/11/22 10:48 06/11/22 10:48 06/11/22 10:48 06/11/22 10:48 06/11/22 10:48 Height: 5 ft 4 in Weight (kg): 72.7 kg Body Mass Index: 27.5 BMI Classification: Overweight - NPO >8 hours - Is Patient ?: No - Lab Results Current Lab Results: Laboratory Tests 06/11/22 11:01: POC Whole Bld Glucose 116 H Home Medications and Allergies Home Medications: Ambulatory Orders Atorvastatin [Lipitor] 20 mg PO QPM 06/09/22 Desvenlafaxine Succinate [Pristiq ER] 100 mg PO DAILY 06/09/22 lisinopriL [Zestril] 5 mg PO DAILY 06/09/22 Metformin HCl 500 mg PO DAILY 03/13/16 Aspirin [Aspir-Low] 81 mg PO DAILY 11/09/16 Cholecalciferol (Vitamin D3) [Vitamin D3] 5,000 intlu PO DAILY 11/09/16 Multivitamin [Multivitamins] 1 tab PO DAILY 11/09/16 Atorvastatin [Lipitor] 20 mg PO QPM 06/09/22 Desvenlafaxine Succinate [Pristiq ER] 100 mg PO DAILY 06/09/22 lisinopriL [Zestril] 5 mg PO DAILY 06/09/22 Allergies/Adverse Reactions: Allergies Allergy/AdvReac Type Severity Reaction Status Date / Time No Known Drug Allergies Allergy Verified 06/03/22 21:29 Anes History & Medical History - Anesthetic History Anesthesia Complications: reports: No previous complications - Medical History Cardiovascular: reports: Hypertension, High cholesterol Pulmonary: reports: None Gastrointestinal: reports: GERD Urinary: reports: None Neuro: reports: None Musculoskeletal: reports: Chronic back pain Endocrine/Autoimmune: reports: Type 2 diabetes Blood Disorders: reports: None Skin: reports: None Smoking Status: Never smoker Psychosocial: reports: Anxiety History of Cancer?: No Exam General: Alert, Oriented x3 Dental: WNL Mouth Opening: Greater than 4 Fingerbreadths Neck Mobility: Normal Mallampati classification: II Thyromental Distance: greater than 6 cm Respiratory: Lungs clear Cardiovascular: Regular rate Other Exam Comments:: multiple piercings, requested removal Plan Anesthesia Type: General Consent for Procedure(s) Verified and Reviewed: Yes Code Status: Attempt Resuscitation ASA classification: 2-Mild systemic disease Is this case an emergency?: No
[2022-06-11] MEDS ORDERED: BUPIVACAINE 0.25% PF 30 ML VIAL SUBQ ONE (12:00)
[2022-06-11] MEDS ORDERED: ACETAMINOPHEN 1,000 MG/100 ML 1,000 MG/100 ML BAG IV ONE (12:05)
[2022-06-11] MEDS ORDERED: SUGAMMADEX 200 MG/2 ML VIAL IVP ONE (12:26)
[2022-06-11] MEDS ORDERED: HYDROcod/ACETAM 5/325 MG TABLET PO PRN (12:53)
--- NOTE | 2022-06-11 12:59 | OPERATIVE REPORT ---
Operative Report - General Procedure Date: 06/11/22 Planned Procedure: laparoscopic cholecystectomy Pre-Op Diagnosis: chronic cholecystitis Procedure Performed: laparoscopic cholecystectomy Post Op Diagnosis: same - Procedure Note Primary Surgeon: henry priest Anesthesia Technique: General ET tube, Local Pathology: gallbladder Estimated Blood Loss (mL): 2 Drain/Tube Type: Other (none) Indications: gallbladder pain Findings: elongated gallbladder with large stones and essentially no bile healthy liver and normal common bile duct Complications: none - Other Other Information/Narrative: The patient was properly identified, brought to the operating room and placed in supine position. Sequential compression devices were placed. General endotracheal anesthesia was induced. The patient was prepped and draped in a sterile fashion and given preoperative antibiotics. Local anesthetic was given to incision areas. An incision was made in the periumbilical area. Dissection proceeded down to fascia. The fascia was incised lifted upwards and abdomen entered with a Veress needle. CO2 was insufflated to a pressure of 15. An 11 mm trocar followed by a 30 degree scope was placed. There was no evidence of injury from Veress needle or trocar placement. Under direct vision 2 5 mm trochars were placed in the right upper quadrant and an 11 mm trocar was placed in the epigastrium. Body of the gallbladder was retracted anterior. Lateral attachments were partially taken down further mobilizing the gallbladder more anterior and away from the duodenum. The infundibulum of the gallbladder was then retracted right lateral and caudad. With minimal use of cautery a large bare cystic plate area or window was carefully created. The cystic duct was inspected from right lateral and left lateral positions. [] The cystic duct was then clipped at the gallbladder and 3 times slightly proximal and sharply divided. The cystic artery was clipped at the gallbladder and then 2 times slightly proximal and sharply divided. The gallbladder was mobilized off from the bed of the liver with hook cautery. The gallbladder was placed in Endo Catch bag and brought out through the epigastric trocar site. Hemostasis was assured. Trochars were removed under direct vision. Fascia at the larger trocar sites was closed with [id number] are running 0 Vicryl suture. Subcutaneous tissue was irrigated and skin closed with interrupted 4-0 Monocryl. Dressings were applied. Patient tolerated the procedure well was awakened and brought to recovery in good condition.
[2022-06-11] MEDS ORDERED: HYDROmorphone 0.5 MG/0.5 ML SYRINGE IVP PRN (13:11)
[2022-06-11] MEDS ORDERED: ePHEDrine 50 MG/ML VIAL IVP PRN (13:11)
[2022-06-11] MEDS ORDERED: MORPHINE 2 MG/ML CARPUJECT IVP PRN (13:11)
[2022-06-11] MEDS ORDERED: fentaNYL 100 MCG/2 ML VIAL IVP PRN (13:11)
[2022-06-11] MEDS ORDERED: ONDANSETRON 4 MG/2 ML VIAL IVP PRN (13:11)
[2022-06-11] MEDS ORDERED: ATROPINE ABBOJECT 1 MG/10 ML SYRINGE IVP PRN (13:11)
[2022-06-11] MEDS ORDERED: NALOXONE 0.4 MG/ML VIAL IVP PRN (13:11)
[2022-06-11] MEDS ORDERED: HYDROmorphone 1 MG/ML CARPUJECT ONE (13:14)
[2022-06-11] MEDS ORDERED: LACTATED RINGERS 1,000 ML IV SCH (14:00)
[2022-06-11 14:47] VITALS: BP 140/92
--- NOTE | 2022-06-11 14:49 | ANESTHESIA POST OP EVALUATION ---
Anesthesia Post Eval - Post Anesthesia Eval Vitals: Last Vital Signs Temp 36.9 C 06/11/22 14:45 Pulse 80 06/11/22 14:45 Resp 13 06/11/22 14:45 BP 140/92 H 06/11/22 14:45 Pulse Ox 97 06/11/22 14:45 O2 Flow Rate CV Function Including HR & BP: Stable Pain Control: Satisfactory Nausea & Vomiting: Negative Mental Status: Baseline Respiratory Status: Airway Patent Hydration Status: Satisfactory Anesthesia Complications: None
== END 2022-06-11 10:24 | disposition home or self-care (01) ==
LOC: SDS 10:23
PROVIDERS: ATTEND Surgery
PROC: 0FT44ZZ Resection of Gallbladder, Percutaneous Endoscopic Approach (ICD-10-PCS; principal; 2022-06-11 11:30)
DX: K80.10 Calculus of gallbladder with chronic cholecystitis without obstruction (principal); I10 Essential (primary) hypertension; E11.9 Type 2 diabetes mellitus without complications; Z79.84 Long term (current) use of oral hypoglycemic drugs; Z32.02 Encounter for pregnancy test, result negative
CPT/HCPCS: 47562; 81025; J0131; J0690; J1170; J3490; J7120

== ENCOUNTER 2022-09-18 11:52 | Outpatient (CLI) | payer MEDICAID ==
[2022-09-18 21:09] LABS: ALBUMIN/GLOBULIN RATIO 1.3 (1.0-2.2); ALKALINE PHOSPHATASE 85 IU/L (42-121); ALT ALANINE AMINOTRANSFERASE 29 IU/L (10-60); AST ASPARTATE AMINOTRANSFERASE 20 IU/L (10-42); BILIRUBIN,TOTAL 0.4 mg/dL (0.2-1.0); BUN - BLOOD UREA NITROGEN 12 mg/dL (6-20); CALCIUM 9.3 mg/dL (8.5-10.3); CARBON DIOXIDE - CO2 27 mmol/L (21-32); CHLORIDE 95 mmol/L (101-111); CHOL/HDL RATIO 2.9 (<4.4); CHOLESTEROL 178 mg/dL; CREATININE 0.8 mg/dL (0.4-1.0); GFR - MDRD 77 (>89); GLUCOSE 99 mg/dL (70-100); HDL CHOLESTEROL 61 mg/dL; LDL CHOLESTEROL,CALCULATED 88 mg/dL; LDL/HDL RATIO 1.4 (<4.4); POTASSIUM 4.1 mmol/L (3.5-5.0); SODIUM 131 mmol/L (135-145); TOTAL PROTEIN 7.2 g/dL (6.7-8.2); TRIGLYCERIDES 146 mg/dL; VLDL CHOLESTEROL 29 mg/dL
[2022-09-18 21:47] LABS: ESTIMATED AVERAGE GLUCOSE 134 mg/dL (70-100); HEMOGLOBIN A1c% 6.3 % (4.27-6.07)
== END 2022-09-18 11:53 | disposition home or self-care (01) ==
LOC: LAB.N 11:52
PROVIDERS: ATTEND Physician Assistant Medical
DX: E11.9 Type 2 diabetes mellitus without complications (principal); E78.5 Hyperlipidemia, unspecified
CPT/HCPCS: 36415; 80053; 80061; 83036; 83721

== ENCOUNTER 2022-11-06 07:47 | Outpatient (CLI) | payer MEDICAID ==
--- NOTE | 2022-11-09 13:45 | Mammography Report ---
BILATERAL DIGITAL SCREENING MAMMOGRAM 3D/2D: 11/06/2022 CLINICAL: Routine screening. Comparison is made to exams dated: 01/23/2021 ultrasound, 01/29/2021 stereotactic biopsy, 01/23/2021 ma mmogram, 12/24/2020 mammogram, and 03/25/2017 mammogram - [facility]. There are scattered areas of fibroglandular density in both breasts (category b / 25%-50% glandular t issue). There is a biopsy clip in the right breast. No significant masses, calcifications, or other findings are seen in either breast. There has been no significant interval change. IMPRESSION: NEGATIVE There is no mammographic evidence of malignancy. A 1 year screening mammogram is recommended. Based on the Tyrer Cuzick model (a risk assessment model) the patients lifetime risk is 8.0% and her 10 year risk is 1.6%. According to the ACR, ACS, and NCCN guidelines, an annual breast MRI exam emmanuel g with mammogram is recommended if the patients lifetime risk is 20% or greater. This exam was interpreted at Station ID: [id number]. NOTE: For mammograms, a report in lay terms will be sent to the patient. Approximately 15% of breast malignancies will not be visualized mammographically. In the management of a palpable breast mass, a negative mammogram must not discourage biopsy of a clinically suspicious lesion. Electronically Signed By: Corbin escoto/anne:11/06/2022 14:32:08 letter sent: No_Letter ACR BI-RADS Category 1: Negative 3341F PARENCHYMAL PATTERN: (A) - The breast(s) demonstrate(s) scattered fibroglandular densities. BI-RADS CATEGORY: (1) - 1 Mammogram [id number] 1 year screening LATERALITY: (B)
== END 2022-11-06 07:48 | disposition home or self-care (01) ==
LOC: DI 07:47
DX: Z12.31 Encounter for screening mammogram for malignant neoplasm of breast (principal)

== ENCOUNTER 2023-01-21 09:55 | Outpatient (CLI) | payer MEDICAID ==
[2023-01-21 11:59] LABS: BASOPHILS # (AUTO) 0.1 10^3/uL (0.0-0.1); BASOPHILS % (AUTO) 0.6 %; EOSINOPHILS # (AUTO) 0.2 10^3/uL (0.0-0.7); EOSINOPHILS % (AUTO) 1.9 %; HCT - HEMATOCRIT 33.5 % (37.0-47.0); HGB - HEMOGLOBIN 10.4 g/dL (12.0-16.0); LYMPHOCYTES # (AUTO) 2.1 10^3/uL (1.5-3.5); LYMPHOCYTES % (AUTO) 25.3 %; MEAN CORPUSCULAR HEMOGLOBIN 26.9 pg (27.0-31.0); MEAN CORPUSCULAR VOLUME 86.6 fL (81.0-99.0); MONOCYTES # (AUTO) 0.7 10^3/uL (0.0-1.0); MONOCYTES % (AUTO) 8.4 %; NEUTROPHILS # (AUTO) 5.3 10^3/uL (1.5-6.6); NEUTROPHILS % (AUTO) 63.6 %; PLT - PLATELET COUNT 497 10^3/uL (130-450); RED BLOOD COUNT 3.87 10^6/uL (4.20-5.40); RED CELL DISTRIBUTION WIDTH 14.3 % (12.0-15.0); WHITE BLOOD COUNT 8.3 x10^3/uL (4.8-10.8)
[2023-01-21 12:19] LABS: ALBUMIN 3.8 g/dL (3.2-5.5); ALBUMIN/GLOBULIN RATIO 1.2 (1.0-2.2); ALKALINE PHOSPHATASE 82 IU/L (42-121); ALT ALANINE AMINOTRANSFERASE 21 IU/L (10-60); AST ASPARTATE AMINOTRANSFERASE 19 IU/L (10-42); BILIRUBIN,TOTAL 0.5 mg/dL (0.2-1.0); BUN - BLOOD UREA NITROGEN 20 mg/dL (6-20); CARBON DIOXIDE - CO2 27 mmol/L (21-32); CHLORIDE 107 mmol/L (101-111); CHOL/HDL RATIO 3.8 (<4.4); CHOLESTEROL 178 mg/dL; CREATININE 0.7 mg/dL (0.4-1.0); GFR - MDRD 90 (>89); GLUCOSE 127 mg/dL (70-100); HDL CHOLESTEROL 47 mg/dL; LDL CHOLESTEROL,CALCULATED 101 mg/dL; LDL/HDL RATIO 2.1 (<4.4); POTASSIUM 3.9 mmol/L (3.5-5.0); SODIUM 140 mmol/L (135-145); TOTAL PROTEIN 6.9 g/dL (6.7-8.2); TRIGLYCERIDES 152 mg/dL; VLDL CHOLESTEROL 30 mg/dL
[2023-01-21 12:24] LABS: CREATININE,URINE 288.3 mg/dL; MICROALBUM/CREATININE RATIO,UR 5.9 ug/mg (<30.0); MICROALBUMIN,URINE 1.7 mg/dL (0-300.0)
[2023-01-21 12:32] LABS: THYROID STIMULATING HORMONE 0.81 uIU/mL (0.34-5.60)
[2023-01-21 12:40] LABS: ESTIMATED AVERAGE GLUCOSE 140 mg/dL (70-100); HEMOGLOBIN A1c% 6.5 % (4.27-6.07)
== END 2023-01-21 09:56 | disposition home or self-care (01) ==
LOC: LAB.N 09:55
PROVIDERS: ATTEND Physician Assistant Medical
DX: Z00.00 Encounter for general adult medical examination without abnormal findings (principal); E78.5 Hyperlipidemia, unspecified; E11.9 Type 2 diabetes mellitus without complications
CPT/HCPCS: 36415; 80053; 80061; 82043; 82570; 83036; 83721; 84443; 85025

== ENCOUNTER 2023-08-25 11:13 | Outpatient (CLI) | payer MEDICAID ==
[2023-08-25 18:29] LABS: BUN - BLOOD UREA NITROGEN 17 mg/dL (6-20); CALCIUM 8.9 mg/dL (8.5-10.3); CARBON DIOXIDE - CO2 28 mmol/L (21-32); CHLORIDE 102 mmol/L (101-111); CHOL/HDL RATIO 3.3 (<4.4); CHOLESTEROL 190 mg/dL; CREATININE 0.6 mg/dL (0.6-1.3); GFR - MDRD 107 (>89); GLUCOSE 113 mg/dL (74-104); HDL CHOLESTEROL 57 mg/dL; LDL CHOLESTEROL,CALCULATED 101 mg/dL; LDL/HDL RATIO 1.8 (<4.4); SODIUM 136 mmol/L (135-145); TRIGLYCERIDES 158 mg/dL (48-352); VLDL CHOLESTEROL 32 mg/dL
[2023-08-25 21:39] LABS: ESTIMATED AVERAGE GLUCOSE 143 mg/dL (70-100); HEMOGLOBIN A1c% 6.6 % (4.27-6.07)
== END 2023-08-25 11:14 | disposition home or self-care (01) ==
LOC: LAB.N 11:13
PROVIDERS: ATTEND Physician Assistant Medical
DX: E11.9 Type 2 diabetes mellitus without complications (principal)
CPT/HCPCS: 36415; 80048; 80061; 83036; 83721

== ENCOUNTER 2024-01-12 13:42 | Outpatient (CLI) | payer MEDICAID ==
--- NOTE | 2024-01-13 11:48 | Mammography Report ---
BILATERAL DIGITAL SCREENING MAMMOGRAM 3D/2D: 01/12/2024 CLINICAL: Routine screening. Comparison is made to exams dated: 11/06/2022 mammogram, 01/29/2021 stereotactic biopsy, 01/23/2021 tiffanie mogram, 12/24/2020 mammogram, 03/25/2017 mammogram, and 02/10/2016 mammogram - [facility]. There are scattered areas of fibroglandular density in both breasts (category b / 25%-50% glandular t issue). There is a biopsy clip in the right breast. No significant masses, calcifications, or other findings are seen in either breast. There has been no significant interval change. IMPRESSION: NEGATIVE There is no mammographic evidence of malignancy. A 1 year screening mammogram is recommended. Based on the Tyrer Cuzick model (a risk assessment model) the patient's lifetime risk is 8.0% and her 10 year risk is 1.7%. According to the ACR, ACS, and NCCN guidelines, an annual breast MRI exam emmanuel g with mammogram is recommended if the patient's lifetime risk is 20% or greater. This exam was interpreted at Station ID: [id number]. NOTE: For mammograms, a report in lay terms will be sent to the patient. Approximately 15% of breast malignancies will not be visualized mammographically. In the management of a palpable breast mass, a negative mammogram must not discourage biopsy of a clinically suspicious lesion. Electronically Signed By: Karmen holliday/anne:01/12/2024 16:59:53 letter sent: No_Letter ACR BI-RADS Category 1: Negative 3341F PARENCHYMAL PATTERN: (A) - The breast(s) demonstrate(s) scattered fibroglandular densities. BI-RADS CATEGORY: (1) - 1 RECOMMENDATION: (ANNUAL) - Recommend routine annual screening mammography. [id number] 1 year screening LATERALITY: (B)
== END 2024-01-12 13:43 | disposition home or self-care (01) ==
LOC: DI 13:42
DX: Z12.31 Encounter for screening mammogram for malignant neoplasm of breast (principal); R92.323 Mammographic fibroglandular density, bilateral breasts